=== PATIENT | female | born 1985 | race African-American/Black ===

== ENCOUNTER 2017-04-13 08:00 | Inpatient (IN) | payer MEDICAID ==
[~2017-04-13] VITALS: Ht 165.1 cm; Wt 81.6 kg
--- NOTE | ~2017-04-13 | OR ---
ADMIT: 04/13/2017 RM/LOC: [facility] MR#: [id number] [address] [facility] [address] [place], [place] [address] CRUZ MICHAEL [address] [place] [address] [address] [place] [address] Operative/Delivery Room Report SEX: F AGE: 32 : 1985 SURGERY DATE: 04/13/2017 SURGEON: Inna Beck MD PREOPERATIVE DIAGNOSES: 1. Intrauterine at 41 weeks' gestation. 2. Active labor. 3. Group B streptococcus negative. POSTOPERATIVE DIAGNOSES: 1. Intrauterine at 41 weeks' gestation. 2. Active labor. 3. Group B streptococcus negative. 4. Delivery of a viable female infant at 2128 hours weighing 8 pounds 8 ounces with scores of 7 at 1 minute, 9 at 5 minutes. PROCEDURE: Spontaneous vaginal delivery with repair of second-degree midline laceration. ANESTHESIA: Epidural. COMPLICATIONS: None. ESTIMATED BLOOD LOSS: 250 mL. FLUIDS: Crystalloid. INDICATIONS: This is a 31-year-old female, 2, para 1, who presented to the [facility] with an intrauterine at 41 weeks' gestation in labor. was complicated by late entry to care and history of syphilis. She was treated in [place] as well as in her first . She did request and receive an epidural for pain control. She did require Pitocin augmentation. Assisted rupture of membranes was performed, and she was 5 cm dilated. She did progress to be complete in a satisfactory fashion at which time, she was allowed to push bringing the 's vertex to the perineum. DESCRIPTION OF PROCEDURE: The patient was noted to be complete. She was placed in a dorsal lithotomy position and prepped and draped in the usual sterile fashion. She was asked to push and delivered the 's vertex in the occiput anterior position. Nuchal cord x1 was relieved around the ADMIT: 04/13/2017 RM/LOC: [facility] MR#: [id number] [address] [facility] [address] [place], [place] [address] CRUZ MICHAEL [address] [place] [address] [address] [place] [address] Operative/Delivery Room Report SEX: F AGE: 32 : 1985 infant's vertex. The anterior shoulder then delivered easily followed by the posterior shoulder and the remainder of the . The did have spontaneous cry and movement of all 4 extremities. She was then passed to the mother's abdomen where nursing personnel were in attendance. After 2 minutes, the cord was clamped x2 and cut by the father. Cord blood was obtained. Twenty units of Pitocin were infused with IV fluids to help firm the uterus. The placenta delivered intact spontaneously. The uterus was not explored. Examination of the cervix and vaginal vault did not reveal any lacerations. Examination of the perineum revealed a second-degree midline laceration. This was repaired using 3-0 Vicryl in the usual fashion. The patient tolerated the procedure well. Sponge, needle, and instrument counts were correct. She is now recovering her Labor and Delivery suite with her infant. Inna Beck MD/ stefanie JOB #: [id number] CC: Inna Beck, Attending Physician FAMILY PHYSICIAN, Family Physician
--- NOTE | ~2017-04-13 | FD ---
ADMIT: 04/13/2017 RM/LOC: 221 [facility] MR#: [id number] 2620 [facility] [address] [place], [place] [address] ITZELMINH GOLDSTEIN CRUZ [address] [place] [address] [address] [place], [place] [id number] Final Diagnosis SEX: F AGE: 31 : 1985 ADMISSION DATE: 04/13/2017 DISCHARGE DATE: 04/15/2017 FINAL DIAGNOSIS: Status post spontaneous vaginal delivery at term. PROCEDURE: 04/13/2017 spontaneous vaginal delivery with delivery of viable female, 8 pounds 8 ounces, Apgars 7 and 9. Inna Beck MD/ jacque JOB #: [id number] CC: Inna Beck MD, Attending Physician FAMILY PHYSICIAN, Family Physician
[2017-04-16] MEDS ORDERED: NIPPLECREAM TP (10:30)
[2017-04-16] MEDS ORDERED: MOTRIN-DPS800 MG PO (10:30)
[2017-04-16] MEDS ORDERED: PRENATAL VIT1 TAB PO (10:30)
--- NOTE | 2017-05-03 09:29 | OR ---
ADMIT: 04/13/2017 RM/LOC: 221 [facility] MR#: [id number] [address] [facility] [address] [place], [place] [address] ITZELCRUZ MCCLAIN [address] [place] [address] [address] [place] [address] Operative/Delivery Room Report SEX: F AGE: 32 : 1985 SURGERY DATE: 04/13/2017 SURGEON: Inna Beck MD PROCEDURE: Removal of epidural catheter. DESCRIPTION OF PROCEDURE: This is a 31-year-old female, 2, now para 2, who delivered a viable female infant with an epidural in place. Following delivery, she was placed in a sitting position. Epidural catheter was removed without any difficulty. The tip was noted to be intact. The patient tolerated the procedure well and is now recovering in her Labor and Delivery suite with her . Inna Beck MD/ stefanie JOB #: [id number] CC: Inna Beck, Attending Physician FAMILY PHYSICIAN, Family Physician
--- NOTE | 2017-05-03 09:29 | HP ---
ADMIT: 04/13/2017 RM/LOC: [facility] MR#: [id number] 2620 [facility] [address] [place], [place] [address] CRUZ MICHAEL [address] [facility] [address] [place] [address] History and Physical SEX: F AGE: 31 : 1985 DATE OF SERVICE: CHIEF COMPLAINT: Uterine contractions. HISTORY OF PRESENT ILLNESS: This is a 31-year-old female, 2, para 1-0- 0-1, who presents to the [facility] with an intrauterine at 41 weeks gestation with estimated date of confinement of 04/06/2017. She presents with complaints of uterine contractions increasing in frequency and intensity. Her estimated date of confinement is based off last menstrual period and consistent with a 21-week ultrasound. Her has been complicated by late entry to care and history of syphilis. She was adequately treated with Bicillin. Her RPR titers have been 1-1 throughout most of this , however, her most recent RPR titer was negative. At the time of initial evaluation, she was noted to be nida every 5 minutes and 3 cm dilated. She is therefore admitted for labor. PAST OBSTETRICAL HISTORY: She had 1 term spontaneous vaginal delivery, that baby weighed 7 pounds, 1 ounce. LABORATORY DATA: Blood type is O positive. Antibody screen negative. HIV negative. RPR reactive. FTA-ABS also reactive, and her RPR titer initially was 1 to 1, most recent RPR was negative. Rubella immune. Hepatitis B surface antigen negative. Gonorrhea and chlamydia negative. Pap was normal. Diabetic screen 102. Group B Strep is negative. PAST MEDICAL HISTORY: She denies hypertension, diabetes, asthma, kidney, or thyroid disease. She has been treated for syphilis in the past both in [facility] and again in [place] with her last . PAST SURGICAL HISTORY: None. SOCIAL HISTORY: She denies tobacco, alcohol, or drug use. ALLERGIES: NO KNOWN DRUG ALLERGIES. CURRENT MEDICATIONS: vitamins. PHYSICAL EXAMINATION: VITAL SIGNS: Temperature is 98, blood pressure 123/72, pulse 88. GENERAL: This is a pleasant female in no acute distress, but she is uncomfortable with uterine contractions. HEENT: Head is normocephalic, atraumatic. Pupils are equal, round, reactive to light and accommodation. Extraocular muscles are intact. NECK: Supple. HEART: Regular rate and rhythm. LUNGS: Clear bilaterally. ABDOMEN: Soft, nontender, and nondistended. Gravid. EXTREMITIES: Nontender. ADMIT: 04/13/2017 RM/LOC: [facility] MR#: [id number] [address] [address] ARAMIS CRUZ GOLDSTEIN [address] [place] [address] [address] [place] [address] History and Physical SEX: F AGE: 31 : 1985 heart tones are 130s baseline. Moderate variability is present, 15 x 15 accelerations are present. Decelerations are absent. Uterine contractions every 5 minutes. Her cervix is 3 cm per nursing staff. Fetus is vertex. Estimated weight is 8.5 pounds. IMPRESSION: 1. This is a 31-year-old female, 2, para 1, with an intrauterine at 41 weeks gestation in active labor. 2. Group B streptococcus negative. PLAN: At this time, we do plan to admit the patient for labor. We will treat her pain as she desires augment if needed, and anticipate a spontaneous vaginal delivery. Inna Beck MD/ stefanie JOB #: [id number] CC: Inna Beck, Attending Physician NO FAMILY PHYSICIAN, Family Physician
== END 2017-04-15 11:35 | disposition home or self-care (01) | DRG 775 ==
LOC: 2LDRP 08:00 → BC 08:00 → 2LDRP 09:07
PROVIDERS: ADMIT Obstetrics & Gynecology
PROC: 0KQM0ZZ Repair Perineum Muscle, Open Approach (ICD-10-PCS; principal; 2017-04-13)
PROC: 10907ZC Drainage of Amniotic Fluid, Therapeutic from Products of Conception, Via Natural or Artificial Opening (ICD-10-PCS; principal; 2017-04-13)
PROC: 10E0XZZ Delivery of Products of Conception, External Approach (ICD-10-PCS; principal; 2017-04-13)
DX: O48.0 Post-term pregnancy (principal); O77.0 Labor and delivery complicated by meconium in amniotic fluid; O69.81X0 Labor and delivery complicated by cord around neck, without compression, not applicable or unspecified; O70.1 Second degree perineal laceration during delivery; Z3A.41 41 weeks gestation of pregnancy; Z37.0 Single live birth